=== PATIENT | female | born 1980 | race Caucasian/White ===

== ENCOUNTER 2024-07-01 11:07 | Emergency (ER) | payer OTHER, SELFPAY ==
[2024-07-01 11:11] VITALS: BP 156/93
[2024-07-01 11:17] VITALS: BMI 34.2
--- NOTE | 2024-07-01 12:49 | ED.GENMED ---
History of Present Illness
General
Chief Complaint: Foreign Body Removal
Source: patient
Exam Limitations: none
Time Seen by Provider: 07/01/24 12:22
History of Present Illness
History of Present Illness:
43-year-old female presents with fishhook in the left ring finger. Last tetanus unknown. No other complaints at this time
Phy Exam
Physical Exam
Physical Exam:
General: Well-appearing female no acute distress
Skin: Metallic foreign body in left ring finger. No surrounding erythema. This is slightly tender
Course
Vital Signs
Initial and Last Documented VS:
Initial Vital Signs
Temp Pulse Resp BP Pulse Ox
98.5 F 87 16 156/93 98
07/01/24 11:11 07/01/24 11:11 07/01/24 11:11 07/01/24 11:11 07/01/24 11:11
Last Documented Vital Signs
Temp Pulse Resp BP Pulse Ox
98.5 F 87 16 156/93 98
07/01/24 11:11 07/01/24 11:11 07/01/24 11:11 07/01/24 11:11 07/01/24 11:11
MDM/Problems Addressed
Differential Diagnosis Includes:
Foreign body in soft tissue of left ring finger. No evidence of tendon involvement or vascular involvement
The area was cleansed with alcohol and anesthetized in a local fashion using 1% plain lidocaine. The fishhook was then easily removed and reversed with a pair of needle drivers. I was then able to express blood from the wound. A dressing was
applied tetanus updated. Stable for discharge
*Critical Care Note
Total Time (30-74mins, 75-104mins- exclusive of procedures): Not Applicable
ED Attending Note
-
Portions of this chart may have been created with voice recognition software.� Occasional wrong word or��sound alike� substitutions may have occurred due to the inherent limitations of voice recognition software.
Discharge Plan
Departure
Patient Disposition: Home (Routine Discharge)
Date of Disposition: 07/01/24
Time of Disposition: 12:51
Patient with high blood pressure during this ER visit?: No
Discharge Problem:
Foreign body in skin
Instructions: Foreign Body in Skin (DC)
Referrals:
UNKNOWN - PT DOES,NOT KNOW [Family Provider] -
Activity Restrictions/Additional Instructions:
Keep clean. He may use ibuprofen or Tylenol if needed for pain. Return if worse otherwise
Interventions
Interventions:
*Risk Screen - Suicide Last Done: 07/01/24 11:11
*General Assessment Last Done: 07/01/24 11:16
*Neglect/Abuse Screening Last Done: 07/01/24 11:11
*ED- Fall Risk Assessment Last Done: 07/01/24 11:16
*ED COVID-19 Vaccine History Last Done: 07/01/24 11:16
Discharge Date and Time
Print Language: LIBYAN
[2024-07-01] MEDS: ADACEL 0.5 ML IM (13:06)
== END 2024-07-01 13:13 | disposition home or self-care (01) ==
LOC: EMR 11:07
PROVIDERS: EMERGENCY PHYSICIAN Emergency Medicine
DX: S60.455A Superficial foreign body of left ring finger, initial encounter (principal); W45.8XXA Other foreign body or object entering through skin, initial encounter; Z23 Encounter for immunization
CPT/HCPCS: 90471; 99282; 90715